=== PATIENT | male | born 1945 | race Caucasian/White ===

== ENCOUNTER 2020-11-08 16:41 | Emergency (ER) | payer MEDICARE, OTHER ==
[~2020-11-08 16:41] MED LIST: AMARYL2 MG PO; ASPIRIN CHEWABL81 MG PO; ATROVENT HFA12.9 GM INH; BENICAR *OUT OF20 MG PO; BENTYL10 MG PO; BUMEX1 MG PO; COZAAR 100MG T100 MG PO; DECADRON6 MG PO; ELAVIL25 MG PO; FEOSOL45 MG PO; FLORANEX TABLE1 EACH PO; HYDRALAZINE25 MG PO; ISOSORBIDE MONO60 MG PO; METFORMIN HCL500 MG PO; MICON-GUARD 2% TOP; MILK THISTLE175 M2 PO; NEURONTIN300 MG PO; OMEPRAZOLE40 MG PO; OXYCODONE-ACET1 EAC1 PO; SYNTHROID50 MCG PO; TEMAZEPAM 15MG15 MG PO; TOPROL XL 50 MG50 MG PO; UROCIT-K10 MEQ PO; VENTOLIN HFA IN18 GM INH; VIBRAMYCIN100 MG PO
[2020-11-08 18:08] LABS: BASOPHIL 0.6 % (0-2); EOSINOPHIL 2.3 % (0-7); HCT 41.4 % (42.0-52.0); HGB 13.1 g/dl (13.2-18.0); LYMPHOCYTE 18.2 % (15-48); MCH 29.5 pg (25.0-31.0); MCHC 31.6 g/dL (32.0-36.0); MCV 93.2 fL (78.0-100.0); MONOCYTE 6.2 % (0-12); MPV 12.2 fL (6.0-9.5); NEUTROPHIL 72.1 % (41-80); NRBC 0; PLT 139 K/uL (150-400); RBC 4.44 M/uL (4.70-6.00); RDW 13.7 % (11.5-14.0); WBC 6.5 K/uL (4.0-10.5)
[2020-11-08 18:18] LABS: ALBUMIN 3.2 g/dL (3.4-5.0); BILIRUBIN - TOTAL 0.4 mg/dL (0.2-1.0); BUN/CREAT RATIO (CALC) 20.7 RATIO; CREATININE 0.92 mg/dL (0.67-1.17); GLOBULIN (CALCULATION) 3.9 g/dL; POTASSIUM 4.7 mmol/L (3.5-5.1); TOTAL PROTEIN 7.1 g/dL (6.4-8.2)
[2020-11-08 18:25] LABS: CLARITY CLEAR (CLEAR); COLOR YELLOW (YELLOW)
[2020-11-08 18:26] LABS: BILIRUBIN NEGATIVE (NEGATIVE); BLOOD NEGATIVE Ery/uL (NEGATIVE); GLUCOSE (U) 3+ mg/dL (NORMAL); LEUKOCYTES NEGATIVE Leu/uL (NEGATIVE); NITRITE NEGATIVE (NEGATIVE); PROTEIN NEGATIVE (NEGATIVE); UROBILINOGEN 0.2 mg/dL (0.2-1.0)
[2020-11-08 19:44] LABS: CORONAVIRUS 2019 SARS-COV-2 NEGATIVE (NEGATIVE); INFLUENZA A NAA NEGATIVE (NEGATIVE)
[2021-01-20] MEDS ORDERED: OXYGEN (08:02)
[2021-01-20] MEDS ORDERED: NORCO 5-325 TA1 EACH PO (10:47)
[2021-01-20] MEDS ORDERED: ONDANSETRON ODT8 MG PO (10:47)
== END 2020-11-08 21:39 | disposition home or self-care (01) ==
LOC: FER 16:41
PROVIDERS: Emergency Medicine
DX: E11.65 Type 2 diabetes mellitus with hyperglycemia (principal); I10 Essential (primary) hypertension; J44.9 Chronic obstructive pulmonary disease, unspecified; Z20.822 Contact with and (suspected) exposure to COVID-19
CPT/HCPCS: 36415; 71045; 80053; 81003; 84484; 85025; J7030; U0002

== ENCOUNTER → 2021-01-20 | Day surgery (SDC) | payer MEDICARE, OTHER ==
[~2021-01-20] VITALS: Ht 167.6 cm; Wt 108.9 kg
[~2021-01-20] MED LIST changes: +NORCO 5-325 TA1 EACH PO; +ONDANSETRON ODT8 MG PO; +OXYGEN
[2021-01-20 08:38] LABS: HCT 41.9 % (42.0-52.0); HGB 13.4 g/dl (13.2-18.0); MCH 29.1 pg (25.0-31.0); MCV 91.1 fL (78.0-100.0); MPV 12.9 fL (6.0-9.5); RBC 4.6 M/uL (4.70-6.00); RDW 13.5 % (11.5-14.0)
[2021-01-20 08:54] LABS: ALBUMIN 3.5 g/dL (3.4-5.0); BILIRUBIN - TOTAL 0.5 mg/dL (0.2-1.0); BUN/CREAT RATIO (CALC) 23.6 RATIO; CREATININE 1.06 mg/dL (0.67-1.17); POTASSIUM 5.2 mmol/L (3.5-5.1); TOTAL PROTEIN 7.5 g/dL (6.4-8.2)
== END | disposition home or self-care (01) ==
LOC: FAS 07:24
PROVIDERS: Surgery
DX: K43.0 Incisional hernia with obstruction, without gangrene (principal); K42.0 Umbilical hernia with obstruction, without gangrene; K21.9 Gastro-esophageal reflux disease without esophagitis; E03.9 Hypothyroidism, unspecified; E11.40 Type 2 diabetes mellitus with diabetic neuropathy, unspecified; M19.90 Unspecified osteoarthritis, unspecified site; I10 Essential (primary) hypertension; J30.9 Allergic rhinitis, unspecified; K58.9 Irritable bowel syndrome, unspecified; M81.0 Age-related osteoporosis without current pathological fracture; I73.9 Peripheral vascular disease, unspecified; J43.9 Emphysema, unspecified; I27.21 Secondary pulmonary arterial hypertension; R55 Syncope and collapse; Z79.82 Long term (current) use of aspirin; Z79.84 Long term (current) use of oral hypoglycemic drugs; Z79.899 Other long term (current) drug therapy; Z87.891 Personal history of nicotine dependence; Z98.84 Bariatric surgery status; Z99.81 Dependence on supplemental oxygen
CPT/HCPCS: 36415; 71045; 80053; J0690; J1170; J2250; J2405; J2704; J2710; J3010; J7120

== ENCOUNTER 2022-05-07 12:53 | Day surgery (SDCO) | payer MEDICARE, OTHER ==
[~2022-05-07] VITALS: Ht 167.6 cm; Wt 112.0 kg
[2022-05-07 13:37] LABS: BASOPHIL 0.5 % (0-2); EOSINOPHIL 0.3 % (0-7); HCT 48.4 % (42.0-52.0); HGB 15.2 g/dl (13.2-18.0); LYMPHOCYTE 10.8 % (15-48); MCH 29.1 pg (25.0-31.0); MCHC 31.4 g/dL (32.0-36.0); MCV 92.7 fL (78.0-100.0); MONOCYTE 4.8 % (0-12); MPV 11.5 fL (6.0-9.5); NEUTROPHIL 83.2 % (41-80); NRBC 0; PLT 170 K/uL (150-400); RBC 5.22 M/uL (4.70-6.00); RDW 13.2 % (11.5-14.0); WBC 9.3 K/uL (4.0-10.5)
[2022-05-07 13:39] LABS: BILIRUBIN NEGATIVE (NEGATIVE); BLOOD 3+ Ery/uL (NEGATIVE); CLARITY CLEAR (CLEAR); COLOR YELLOW (YELLOW); GLUCOSE (U) 2+ mg/dL (NORMAL); LEUKOCYTES TRACE Leu/uL (NEGATIVE); NITRITE NEGATIVE (NEGATIVE); PROTEIN 2+ mg/dL (NEGATIVE); SPECIFIC GRAVITY 1.025 (1.001-1.030); pH 5.5 (5.0-9.0)
[2022-05-07 13:44] LABS: AMPHETAMINES NEGATIVE (NEGATIVE); BARBITURATES NEGATIVE (NEGATIVE); ECSTASY (MDMA) NEGATIVE (NEGATIVE); MARIJUANA (THC) NEGATIVE (NEGATIVE); METHADONE NEGATIVE (NEGATIVE); OPIATES NEGATIVE (NEGATIVE); OXYCODONE POSITIVE (NEGATIVE)
[2022-05-07 13:46] LABS: URINARY RBC TNTC; URINARY WBC RARE
[2022-05-07 13:55] LABS: ALBUMIN 3.8 g/dL (3.4-5.0); ALKALINE PHOSHATASE 103 U/L (46-116); ALT 41 U/L (16-63); AST 39 U/L (15-37); BILIRUBIN - TOTAL 0.8 mg/dL (0.2-1.0); BUN 16 mg/dL (7-18); BUN/CREAT RATIO (CALC) 17.2 RATIO; CHLORIDE 102 mmol/L (98-107); CO2 (BICARBONATE) 28 mmol/L (21-32); CREATININE 0.93 mg/dL (0.67-1.17); GLUCOSE 169 mg/dL (74-106); POTASSIUM 4.6 mmol/L (3.5-5.1); TOTAL PROTEIN 7.8 g/dL (6.4-8.2)
[2022-05-07] MEDS ORDERED: NEURONTIN300 MG PO (18:15)
[2022-05-07] MEDS ORDERED: METFORMIN HCL500 MG PO (18:16)
[2022-05-07] MEDS ORDERED: AMARYL2 MG PO (18:17)
[2022-05-07] MEDS ORDERED: HYDRALAZINE25 MG PO (18:18)
[2022-05-07] MEDS ORDERED: COZAAR100 MG PO (18:19)
[2022-05-07] MEDS ORDERED: PERCOCET 5-3251 EACH PO (18:20)
[2022-05-07] MEDS ORDERED: MILK THISTLE PO (18:20)
[2022-05-07] MEDS ORDERED: SYNTHROID75 MCG PO (18:21)
[2022-05-07] MEDS ORDERED: BENICAR *OUT OF20 MG PO (18:22)
[2022-05-07] MEDS ORDERED: ZYRTEC10 M3 PO (18:23)
[2022-05-07] MEDS ORDERED: FARXIGA10 MG PO (18:23)
[2022-05-07] MEDS ORDERED: IPRATROPIUM0.2 MG/ML (18:25)
[2022-05-08 07:02] LABS: BASOPHIL 0.1 % (0-2); EOSINOPHIL 0 % (0-7); MCH 29.1 pg (25.0-31.0); MCHC 30.6 g/dL (32.0-36.0); MONOCYTE 2.5 % (0-12); MPV 11.4 fL (6.0-9.5); NEUTROPHIL 87.8 % (41-80); NRBC 0; PLT 141 K/uL (150-400); RBC 5.16 M/uL (4.70-6.00); RDW 13.1 % (11.5-14.0); WBC 10.6 K/uL (4.0-10.5)
[2022-05-08 07:48] LABS: IRON % SATURATION 16.5 %SAT (20-50)
[2022-05-08 08:33] LABS: BUN 25 mg/dL (7-18); BUN/CREAT RATIO (CALC) 25.8 RATIO; CHLORIDE 104 mmol/L (98-107); CO2 (BICARBONATE) 25 mmol/L (21-32); CREATININE 0.97 mg/dL (0.67-1.17); GLUCOSE 162 mg/dL (74-106); MAGNESIUM 2.2 mg/dL (1.8-2.4); POTASSIUM 4.8 mmol/L (3.5-5.1)
[2022-05-08 08:37] LABS: FOLIC ACID (SERUM) > 100.0 ng/mL (8.6-58.9)
[2022-05-09 06:35] LABS: BASOPHIL 0.5 % (0-2); HCT 43.5 % (42.0-52.0); MCHC 29.9 g/dL (32.0-36.0); MCV 96.9 fL (78.0-100.0); MONOCYTE 7.2 % (0-12); MPV 11.6 fL (6.0-9.5); NEUTROPHIL 66.5 % (41-80); NRBC 0; PLT 144 K/uL (150-400); RBC 4.49 M/uL (4.70-6.00); RDW 13.6 % (11.5-14.0); WBC 9.2 K/uL (4.0-10.5)
[2022-05-09 06:37] LABS: BUN/CREAT RATIO (CALC) 28.7 RATIO; CREATININE 1.01 mg/dL (0.67-1.17); POTASSIUM 4.6 mmol/L (3.5-5.1)
[2022-05-09] MEDS ORDERED: FLEXERIL5 MG PO (10:52)
== END 2022-05-09 11:38 | disposition home or self-care (01) ==
LOC: FER 12:53 → FMS 16:05
PROVIDERS: Emergency Medicine; ADMIT Internal Medicine
DX: M54.16 Radiculopathy, lumbar region (principal); M54.50 Low back pain, unspecified; E87.2 Acidosis; E11.9 Type 2 diabetes mellitus without complications; I27.20 Pulmonary hypertension, unspecified; J44.9 Chronic obstructive pulmonary disease, unspecified; I10 Essential (primary) hypertension; M19.90 Unspecified osteoarthritis, unspecified site; K21.9 Gastro-esophageal reflux disease without esophagitis; E66.01 Morbid (severe) obesity due to excess calories; Z20.822 Contact with and (suspected) exposure to COVID-19; Z87.891 Personal history of nicotine dependence; Z68.39 Body mass index [BMI] 39.0-39.9, adult
CPT/HCPCS: 36415; 36600; 70450; 71045; 72131; 72148; 80048; 80053; 80305; 81001; 82607; 82746; 82803; 83540; 83550; 83605; 83735; 83880; 84100; 84145; 84484; 85025; 87088; 93005; 94640; 94760; 94762; 97162; 97166; 97530-GP; G0378; G0480; J1170; J1650; J1885; J2800; J2930; J7030; J7050; J7120; U0002